=== PATIENT | male | born 1970 | race Caucasian/White ===

== ENCOUNTER 2018-11-20 16:56 | Emergency (ER) | payer OTHER ==
[2018-11-20] MEDS: LIDOCAINE 1% (MDV) 20 ML INJ SC (17:46)
== END 2018-11-20 18:06 | disposition home or self-care (01) ==
LOC: E/R 16:56
DX: L02.412 Cutaneous abscess of left axilla (principal); I10 Essential (primary) hypertension; F17.210 Nicotine dependence, cigarettes, uncomplicated
CPT/HCPCS: 10060; 99283-25